=== PATIENT | male | born 1980 | race Caucasian/White ===

== ENCOUNTER 2023-01-24 06:51 | Emergency (ER) | payer BC, SELFPAY ==
[2023-01-24] VITALS (9 sets, daily range): BP systolic 159–183; BP diastolic 100–110; PULSE 84–103; RESP 13–23; TEMP 36.3; O2SAT 97–98
--- NOTE | ~2023-01-24 | XR_ITS ---
EXAMINATION: XR chest 1V DATE: 01/24/2023 07:45 INDICATION: Right-sided visual loss. TECHNIQUE: A single frontal view of the chest was obtained. COMPARISON: None. FINDINGS: There is no pneumonia, pleural effusion, of pneumothorax. The heart size is normal. IMPRESSION: 1. Normal chest. Reviewed, dictated and finalized at location A. IMPRESSION: 1. Normal chest.
--- NOTE | ~2023-01-24 | CT_ITS ---
EXAMINATION: CTA brain carotid DATE: 01/24/2023 07:44 INDICATION: Right-sided visual loss. TECHNIQUE: Computed tomographic angiography (CTA) of the head was performed without and with 100 mL O mnipaque-350 intravenous contrast. CTA of the neck was performed with intravenous contrast. Automated exposure control and iterative reconstruction technique were employed. The dose-length product was 1 828.75 mGy-cm. Maximum intensity projection and volume rendered 3D-reconstructions were created by hubert barrios technologist on a separate workstation. COMPARISON: None. FINDINGS: HEAD CTA: There is no intracranial hemorrhage, acute infarction, or abnormal intracranial mass lesion . The ventricles are normal in size. The paranasal sinuses are clear. The mastoid air cells are theresa l. The orbits are normal. Right vertebral artery is dominant. There is no significant stenosis of bas ilar artery or the posterior cerebral arteries. The posterior communicating arteries are normal. Ther e is no significant stenosis of the intracranial internal carotid arteries or anterior or middle cere bral arteries. Anterior communicating artery is normal. There is no aneurysm. NECK CTA: There are no pathologically enlarged lymph nodes. There is no significant stenosis of the v ertebral arteries. There is mild plaque in the proximal internal carotid arteries. There is 0% stenos is of the proximal right internal carotid artery relative to normal distal artery lumen diameter (ECHO CET criteria). There is 0% stenosis of the proximal left internal carotid artery relative to normal d istal artery lumen diameter. There is mild cervical spondylosis. IMPRESSION: 1. Normal brain. No aneurysm or significant intracranial internal stenosis. 2. 0% stenosis of the proximal internal carotid arteries relative to normal distal artery lumen diame ters (NASCET criteria). Reviewed, dictated and finalized at location A. IMPRESSION: 1. Normal brain. No aneurysm or significant intracranial internal stenosis. 2. 0% stenosis of the proximal internal carotid arteries relative to normal dis brian artery lumen diameters (NASCET criteria).
--- NOTE | 2023-01-24 07:16 | ECG_ITS ---
Measurements Intervals [place] Rate: 87 P: 65 FL: 153 QRS: 16 QRSD: 93 T: 28 QT: 335 QTc: 405 Interpretive Statements SINUS RHYTHM NORMAL ELECTROCARDIOGRAM NO PREVIOUS ECG AVAILABLE FOR COMPARISON Electronically Signed On 01-24-2023 14:44:12 CDT by Gibran Kohler M.D.
--- NOTE | 2023-01-24 07:28 | ED.EYEPROB ---
HPI - Eye Problem General Chief complaint: Eye Problems Stated complaint: vision loss right eye Time Seen by Provider: 01/24/23 07:26 Source: patient Mode of arrival: ambulatory Limitations: no limitations History of Present Illness HPI Narrative: Patient drove himself to the emergency room complaining of right eye blurry vision, like a piece of plastic across his visual field. Started 1 hour prior to arrival to the emergency room. He denies any fever, chills, nausea, vomiting, headache or any neurodeficit. Patient reported having similar symptoms on the left eye 2 weeks ago felt like his eyeglasses is dirty and need to be cleaned, resolved over 48 hours. History of hypertension, drinks alcohol daily, does not smoke or uses drugs, status post right hip replacement possible avascular necrosis August 2022 Related Data Allergies Allergy/AdvReac Type Severity Reaction Status Date / Time Penicillins Allergy Unknown Verified 01/24/23 08:00 Review of Systems Review of Systems: All systems reviewed & are unremarkable except as noted in HPI and below Exam Narrative: General appearance: Well-developed, well-nourished Skin: Normal color Head: Normocephalic, nontraumatic Eyes: Clear conjunctiva, patient is able to see and to count my fingers by right eye but looks blurry and have a halo around the fingers from a distance of 1 foot from the patient. ENT: Oropharynx normal, ears normal, nose normal Neck: Supple, nontender Chest and respiratory: Airway patent, no respiratory distress, no accessory muscle use Heart: Regular rate/rhythm Abdomen: Soft, nontender, no organomegaly, quiet bowel sounds Vascular: Normal peripheral pulses, normal capillary refill. Musculoskeletal: Normal range of motion, nontender back Neurologic: Alert and oriented ?3, [employer] is normal as tested, no gross motor deficit Course Reevaluation(s) Reevaluation #1: No new changes compared to on arrival to the ED until the time of transfer to [facility] Date: 01/24/23 Time: 09:57 Consultations Consultation #1: DR DUCKWORTH, double surface operator at [facility] who accepted patient transfer to the ED Date: 01/24/23 Time: 09:42 Consultation #2: DR PANDYA Date: 01/24/23 Time: 09:57 Vital Signs Vital signs: Vital Signs Temperature 36.3 C L 01/24/23 06:57 Pulse Rate 103 H 01/24/23 06:57 Respiratory Rate 20 01/24/23 06:57 Blood Pressure 183/110 H 01/24/23 06:57 Pulse Oximetry 97 01/24/23 06:57 Oxygen Delivery Room Air 01/24/23 06:57 Temperature 36.3 C L 01/24/23 06:57 Pulse Rate 90 01/24/23 08:35 Respiratory Rate 23 H 01/24/23 08:35 Blood Pressure 171/107 H 01/24/23 08:16 Pulse Oximetry 97 01/24/23 06:57 Oxygen Delivery Room Air 01/24/23 06:57 MDM - Eye Problem MDM Narrative Medical decision making narrative: Patient presents with pleurisy right started prior to arrival to the emergency room. History of hypertension, not an antiplatelet or anticoagulant medication, denies any headache. Similar symptoms 2 weeks ago on the left resolved in 2 days. Physical examination was significant for double vision with certain eye movement, patient able to see my fingers with a halo around it and double vision. Differential diagnosis arterial, venous partial occlusion, temporalis arthritis, TIA, CVA Work-up today include CBC, CMP, PT PTT, sed rate, TSH, chest x-ray, CT head without contrast, CTA head and neck showed no acute abnormalities. Visual acuity on arrival left eye 20/20, right eye 20/200. Diagnosis is double vision, right eye vision disorder for further evaluation by double surface operator. Transfer to [facility] discussed with the op
[2023-01-24 07:37] LABS: Estimated CRCL calculation 118 ml/min; Estimated Glomerular Filt Rate > 60
[2023-01-24 07:38] LABS: Basophils Percent Auto 0.6 % (0.2-1.2); Eosinophils Absolute Auto 0.1 K/mm3 (0-0.3); Eosinophils Percent Auto 1.9 % (0-4.4); Hematocrit 43.4 % (42.0-52.0); Hemoglobin 14.9 g/dL (14.0-18.0); Immature Granulocyte Absolute 0.03 K/mm3 (0.00-0.031); Immature Granulocyte Percent A 0.5 % (0-0.5); Lymphocytes Absolute Auto 2.09 K/mm3 (0.9-3.2); Lymphocytes Percent Auto 33.6 % (18.3-44.2); Mean Corpuscular HGB Conc 34.3 g/dl (32-36); Mean Corpuscular Hemoglobin 31.9 pg (26-34); Mean Corpuscular Volume 92.9 fl (80-100); Mean Platelet Volume 10.4 fl (7.4-10.4); Monocytes Absolute Auto 0.7 K/mm3 (0.1-0.6); Monocytes Percent Auto 10.8 % (2.6-8.5); Neutrophils Absolute Auto 3.3 K/mm3 (1.3-6.7); Neutrophils Percent Auto 52.6 % (45.5-73.1); Platelet Count Result 248 k/mm3 (150-375); Red Blood Count 4.67 M/mm3 (4.6-6.20); Red Cell Distribution Width 13.1 % (11.5-14.5); White Blood Count 6.2 K/mm3 (4.5-10.0)
[2023-01-24 07:47] LABS: INR 0.9; Partial Thromboplastin Time 23.7 SECONDS (22.3-36.8); Prothrombin Time 12.4 Seconds (11.1-14.7)
[2023-01-24 07:48] LABS: Alanine Aminotransferase 39 U/L (6-50); Albumin Level 4.4 g/dL (3.5-5.1); Alkaline Phosphatase 110 U/L (38-126); Anion Gap 4 mmol/L (8-16); Aspartate Amino Transferase 53 U/L (17-59); Bilirubin,Total 0.5 mg/dL (0.2-1.3); Blood Urea Nitrogen 13 mg/dL (9-20); Calcium 9.1 mg/dL (8.4-10.2); Carbon Dioxide 28 mmol/L (22-30); Chloride 106 mmol/L (98-107); Estimated CRCL calculation 132 ml/min; Estimated Glomerular Filt Rate > 60; Glucose 128 mg/dL (65-110); Potassium 4.3 mmol/L (3.4-5.0); Sodium 138 mmol/L (137-145)
[2023-01-24 07:54] LABS: Glucose Point of Care 128 mg/dl (65-105)
[2023-01-24 08:00] LABS: Troponin I 0.033 ng/mL (0.000-0.034)
[2023-01-24 09:10] LABS: CRP 1.3 mg/dL (<1.0)
[2023-01-24 09:15] LABS: Erythrocyte Sedimentation Rate 21 mm/hr (0-20)
[2023-01-24] MEDS: ASPIRIN 325 MG TABLET PO (10:02)
--- NOTE | 2023-01-24 11:03 | PC.NURSE ---
1023 Attempted to call report to [facility] ED 1024 Ambulance arrival for pt [id number] Ambulance departure with pt
== END 2023-01-24 11:05 | disposition short-term general hospital (02) ==
PROVIDERS: Emergency Provider Emergency Medicine
DX: H53.8 Other visual disturbances (principal); I10 Essential (primary) hypertension; Z96.641 Presence of right artificial hip joint
CPT/HCPCS: 36415; 70496; 70498; 71045; 80053; 82948; 84443; 84484; 85025; 85610; 85652; 85730; 86140; 93005; 99284; 99285; A9270; Q9967